=== PATIENT | female | born 1965 | race Caucasian/White ===

== ENCOUNTER 2024-02-09 15:18 | Emergency (ER) | payer OTHER ==
--- NOTE | 2024-02-09 16:24 | EDPHYS ---
Physician Documentation [facility] Name: Tosha Sweet Age: 58 yrs Sex: Female : 1965 Arrival Date: 02/09/2024 Time: 15:18 Bed 11 Private MD: ED Physician Sean Arora HPI: 02/08 16:24 This 58 yrs old Female presents to ER via Ambulatory with complaints of Ear ec2 Pain. 16:24 Patient arrives today for evaluation of right ear pain. Patient reports pain started ec2 yesterday. Patient reports no fevers or chills, nausea or vomiting. Patient reports no ear trauma. Patient reports history of allergies, states that she feels like her ears are clogged.. Historical: - Allergies: 15:56 PENICILLINS; ss - Home Meds: 15:56 levothyroxine 112 mcg capsule daily [Active]; ss - PMHx: 15:56 Hypothyroidism; ss - PSHx: 15:56 Thyroidectomy; ss - Immunization history:: Client reports receiving the 2nd dose of the Covid vaccine. - Infectious Disease History:: Denies. - Social history:: Smoking status: Patient reports the use of cigarette tobacco products, smokes one-half pack cigarettes per day. ROS: 16:24 Constitutional: as per hpi ec2 Exam: 16:24 Constitutional: GEN: NAD Head: atraumatic Eyes: EOMI Ears: External ears are normal. ec2 Right ear with fluid behind the tympanic membrane along with erythema surrounding the tympanic membrane. CV: regular rate LUNGS: no respiratory distress ABD: non-distended SKIN: no evidence of rashes MSK: no evidence of trauma NEURO: moves all extremities equally Vital Signs: 15:55 BP 105 / 77; Pulse 100; Resp 17; Temp 98.6(TE); Pulse Ox 97% on R/A; Weight 81.65 kg; ss Height 5 ft. 7 in. ; Pain 8/10; 15:55 Body Mass Index 28.19 (81.65 kg, 170.18 cm) ss 15:55 Pain Scale: Adult ss MDM: 16:07 Patient medically screened. ec2 16:24 Data reviewed: vital signs. ED course: Patient arrives today for right ear pain. ec2 Examination remarkable for HEENT findings as noted above. Will give the patient clindamycin for acute otitis media, will also give the patient Toradol for pain. Instructed the patient [id number] medications. Will discharge home, return precautions given. Patient otherwise similarly well-appearing in no acute distress, do not feel that lab work such as CBC or BMP would beneficial in the setting.. Administered Medications: 16:36 Drug: Clindamycin PO 450 mg PO once Route: PO; iw 16:36 Drug: Ketorolac IM 30 mg IM once Route: IM; Site: left gluteus; iw Disposition Summary: 02/09/24 16:24 Discharge Ordered Notes: Location: Home ec2 Condition: Stable ec2 Diagnosis - Acute suppurative otitis media ec2 Followup: ec2 - With: Private Physician - When: - Reason: Re-evaluation by your physician Discharge Instructions: - Discharge Summary Sheet ec2 - Otitis Media, Adult, [id number] ec2 Forms: - Medication Reconciliation Form ec2 - Antibiotic Education ec2 - Prescription Opioid Use ec2 - Patient Portal Instructions ec2 - Leadership Thank You Letter ec2 Prescriptions: - Clindamycin HCl 150 mg Oral capsule - take 3 capsule ORAL route every 8 hours for 7 days; 63 capsule; Refills: 0, ec2 Product Selection Permitted Signatures: Karina Harman RN RN iw Latrice Renteria RN RN ss Sean Arora MD MD ec2
--- NOTE | 2024-02-09 16:24 | ER ---
Nurse's Notes [facility] Name: Tosha Sweet Age: 58 yrs Sex: Female : 1965 Arrival Date: 02/09/2024 Time: 15:18 Bed 11 Private MD: Diagnosis: Acute suppurative otitis media Presentation: 02/08 15:55 Chief complaint: Patient states: R ear pain that began this morning. Pt reports she has ss been battling fluid on her ears x 2.5 weeks. PCP prescribed medication that seemed to be working, but it's come back. Coronavirus screen: Client denies travel out of the [place] in the last 14 days. Ebola Screen: Patient denies exposure to infectious person. Patient denies travel to an Ebola-affected area in the 21 days before illness onset. Initial Sepsis Screen: Does the patient meet any 2 criteria? No. Patient's initial sepsis screen is negative. Does the patient have a suspected source of infection? No. Patient's initial sepsis screen is negative. Risk Assessment: Do you want to hurt yourself or someone else? Patient reports no desire to harm self or others. Onset of symptoms was February 09, 2024. 15:55 Method Of Arrival: Ambulatory ss 15:55 Acuity: MARIN 4 ss Historical: - Allergies: 15:56 PENICILLINS; ss - Home Meds: 15:56 levothyroxine 112 mcg capsule daily [Active]; ss - PMHx: 15:56 Hypothyroidism; ss - PSHx: 15:56 Thyroidectomy; ss - Immunization history:: Client reports receiving the 2nd dose of the Covid vaccine. - Infectious Disease History:: Denies. - Social history:: Smoking status: Patient reports the use of cigarette tobacco products, smokes one-half pack cigarettes per day. Screenin:57 Abuse screen: Denies threats or abuse. Denies injuries from another. Nutritional ss screening: No deficits noted. Tuberculosis screening: No symptoms or risk factors identified. Assessment: 15:57 General: Appears in no apparent distress. comfortable, Behavior is calm, cooperative. ss Pain: Complains of pain in right ear Pain currently is 8 out of 10 on a pain scale. Quality of pain is described as aching, throbbing. Neuro: Level of Consciousness is awake, alert, obeys commands. Respiratory: Airway is patent Respiratory effort is even, unlabored, Respiratory pattern is regular, symmetrical. EENT: Oral mucosa is moist. Throat is clear. Derm: Skin is intact, is healthy with good turgor, Skin is pink, warm \T\ dry. normal. Vital Signs: 15:55 BP 105 / 77; Pulse 100; Resp 17; Temp 98.6(TE); Pulse Ox 97% on R/A; Weight 81.65 kg; Height 5 ft. 7 in. ; Pain 8/10; 15:55 Body Mass Index 28.19 (81.65 kg, 170.18 cm) ss 15:55 Pain Scale: Adult ED Course: 15:23 Patient arrived in ED. im 15:28 Sean Arora MD is Attending Physician. ec2 15:55 Latrice Renteria RN is Primary Nurse. ss 15:56 Triage completed. ss 15:56 Arm band placed on left wrist. ss 15:57 Patient has correct armband on for positive identification. ss Administered Medications: 16:36 Drug: Clindamycin PO 450 mg PO once Route: PO; iw 16:36 Drug: Ketorolac IM 30 mg IM once Route: IM; Site: left gluteus; iw Outcome: 16:24 Discharge ordered by . ec2 16:36 Patient left the ED. iw Signatures: Karina Harman RN RN Latrice Renteria, YI RN Laura Perez im Sean Arora MD MD ec2
[2024-02-09] MEDS ORDERED: KETOROLAC 30 MG/ML INJ ONE (16:30)
[2024-02-09 17:01] VITALS: BP 105/77; TEMP 98.6; O2SAT 97
== END 2024-02-09 16:36 | disposition home or self-care (01) ==
LOC: ER 15:18
DX: H66.001 Acute suppurative otitis media without spontaneous rupture of ear drum, right ear (principal); E03.9 Hypothyroidism, unspecified; F17.210 Nicotine dependence, cigarettes, uncomplicated; Z88.0 Allergy status to penicillin
CPT/HCPCS: 96372; 99284